=== PATIENT | male | born 2000 | race Asian ===

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

== ENCOUNTER 2020-06-04 11:18 | Emergency (ER) | payer BC | END 2020-06-04 17:13 | disposition home or self-care (01) | LOC: JVIRT 11:18 | DX: U07.1 COVID-19 (principal) | CPT/HCPCS: C9803; Q3014-GT; U0003 ==

== ENCOUNTER 2020-06-13 15:27 | Emergency (ER) | payer BC ==
[2020-06-13] MEDS ORDERED: FAMOTIDINE 20 MG TABLET PO ONE (15:54)
[2020-06-13] MEDS ORDERED: ONDANSETRON *ODT* 4 MG TABLET SL ONE (15:55)
[2020-06-13] MEDS ORDERED: MAG HYDROX/AL HYDROX/SIMETH 30 ML UNIT-DOSE CUP PO ONE (15:55)
[2020-06-13 16:04] VITALS: BP 125/75; PULSE 89; TEMP 98.1; BMI 23.6
[2020-06-13] MEDS ORDERED: MAG HYDROX/AL HYDROX/SIMETH 30 ML UNIT-DOSE CUP ONE (16:10)
[2020-06-13] MEDS ORDERED: FAMOTIDINE 20 MG TABLET ONE (16:10)
[2020-06-13] MEDS ORDERED: ONDANSETRON *ODT* 4 MG TABLET ONE (16:11)
[2020-06-13 16:37] LABS: BASO % 4.2 % (0-2.0); EOS % 0.8 % (0-4.5); HEMATOCRIT 44.5 % (35.4-49); HEMOGLOBIN 15.3 GM/dl (11.7-16.9); LYMPH % 16.3 % (8-40); MCH 32.3 pg (25.7-33.7); MCHC 34.3 g/dl (32.0-35.9); MEAN PLT VOLUME 8.9 fl (7.5-11.1); MONO % 9.3 % (3.8-10.2); NEUT % 69.4 % (42.8-82.8); PLATELET COUNT 223 K/MM3 (134-434); RBC 4.74 M/mm3 (4.00-5.60); RDW 11.8 % (11.9-15.9); WHITE BLOOD COUNT 3.9 K/mm3 (4.0-10.8)
[2020-06-13 16:55] LABS: ALBUMIN 4.8 g/dl (3.4-5.0); CALCIUM 9.2 mg/dl (8.5-10); POTASSIUM 3.8 mmol/L (3.5-5.1); TOT PROT 7.7 g/dl (6.4-8.2)
== END 2020-06-13 18:29 | disposition home or self-care (01) ==
LOC: FER 15:27
DX: K52.9 Noninfective gastroenteritis and colitis, unspecified (principal); R10.13 Epigastric pain; R63.0 Anorexia
CPT/HCPCS: 36415; 80053; 83690; 85025; 99284-25; Q0162